=== PATIENT | male | born 1995 | race African-American/Black ===

== ENCOUNTER 2019-03-06 00:32 | Emergency (ER) | payer SELFPAY ==
[~2019-03-06] VITALS: Ht 182.9 cm; Wt 82.0 kg
[2019-03-06 03:10] VITALS: BP 129/75
[2019-03-06] MEDS ORDERED: ACETAMINOPHEN 325MG TABLET PO ONE (03:15)
== END 2019-03-06 04:02 | disposition home or self-care (01) ==
LOC: ER 00:32
DX: S16.1XXA Strain of muscle, fascia and tendon at neck level, initial encounter (principal); S00.83XA Contusion of other part of head, initial encounter; R03.0 Elevated blood-pressure reading, without diagnosis of hypertension; V49.49XA Driver injured in collision with other motor vehicles in traffic accident, initial encounter; Y93.89 Activity, other specified; Y92.410 Unspecified street and highway as the place of occurrence of the external cause
CPT/HCPCS: 99283